=== PATIENT | female | born 1965 | race Caucasian/White ===

== ENCOUNTER 2021-10-09 06:23 | Observation (INO) | payer OTHER ==
[~2021-10-09] VITALS: Ht 160 cm; Wt 83.5 kg
[2021-10-09] VITALS (10 sets, daily range): BP systolic 94–125; BP diastolic 51–69
[~2021-10-09 06:23] MED LIST: AMIODARONE HCL400 MG PO; ASPIR 8181 M1 PO; AUGMENTIN 875-1 EACH PO; CARDIZEM CD240 M1 PO; CARTIA XT120 M1 PO; CEFPODOXIME PR200 M1 PO; CIPROFLOXACIN500 M1 PO; COZAAR 25 MG TA25 M1 PO; COZAAR 25 MG TA25 M2 PO; DILTIAZEM 24HR120 M1 PO; DILTIAZEM 24HR300 M2 PO; EFFIENT10 MG PO; FLAGYL500 MG PO; LANOXIN 0.120.125 M1 PO; LANOXIN125 MCG PO; LEVO-T100 MCG PO; LIPITOR 40 MG T40 M1 PO; MULTAQ 400 MG400 MG PO; NITROGLYCERIN0.4 MG SUBLING; NOHOMEMEDICATIONS; NORCO 5-325 TA1 EACH PO; PACERONE 200 M200 M1 PO; PACERONE200 MG PO; PREDNISONE 10 M10 MG PO; PREDNISONE10 MG PO; PROAIR HFA8.5 GM INH; PROTONIX40 M1 PO; SPIRONOLACTONE25 MG PO; TOPROL XL50 MG PO; TORSEMIDE10 MG PO; VICODIN 5-5001 EACH PO; XARELTO20 MG PO
[2021-10-09] MEDS ORDERED: MULTAQ 400 MG400 MG PO (07:41)
[2021-10-09 07:54] LABS: ABSOLUTE NEUTROPHILS 10.4 thou/uL (1.4-8.2); BASOPHILS 1.1 % (0.0-2.0); EOSINOPHILS 1.9 % (0.0-3.0); HEMATOCRIT 41.5 % (37.0-47.0); HEMOGLOBIN 14.4 gm/dL (12.0-15.0); LYMPHOCYTES 21.8 % (24.0-44.0); MCHC 34.6 g/dL (28.0-37.0); MCV 92.3 fL (80.0-100.0); MONOCYTES 6.4 % (1.0-8.0); PLATELET COUNT 348 thou/uL (150-400); POLYS 68.8 % (36.0-66.0); RDW 16.4 % (10.5-14.5); WBC 15.1 thou/uL (4.0-11.0)
[2021-10-09 07:58] LABS: APTT 29.2 Seconds (24.5-32.8); INR 1.03; PROTIME 11.2 Seconds (10.5-12.1)
[2021-10-09 08:09] LABS: ALBUMIN 3.5 g/dL (3.4-5.0); CALCIUM 8.9 mg/dL (8.5-10.1); CREATININE 1.3 mg/dL (0.6-1.0); POTASSIUM 4.3 mmol/L (3.5-5.1); TOTAL BILIRUBIN 0.6 mg/dL (0.2-1.0); TOTAL PROTEIN 6.7 g/dL (6.4-8.2)
--- NOTE | 2021-10-09 13:24 | NUR ---
Received pt to room 212 from PACU following AFib ablation & cardioversion. Pt is A&O x4, SA on the monitor, on 2L NC. No home oxygen. Admission assessment & forms signed. Rt groin site is C/D/I. Bedrest until approx 1600. VSS. Fall precautions in place.
--- NOTE | 2021-10-10 01:28 | NUR ---
ASSUMED PT CARE AT 1900.PT WAS OBSERVED SITTING UP ON HER BED WATCHING TV AT [facility].PT DENIED PAIN SO FAR.PT UP ADLIB IN HER RROM.R GROIN DRSG C/D/I.NO HEMATOMA NOTED SO FAR.PT ABLE T MAKE HER NEEDS KNOWN.CALL LIGHT WITHIN REACH.
[2021-10-10 05:00] VITALS: BP 108/51
[2021-10-10 07:23] VITALS: BP 115/63
[2021-10-10] MEDS ORDERED: ASPIRIN325 PO (07:35)
[2021-10-10 10:19] VITALS: BP 115/63
--- NOTE | 2021-10-10 10:37 | NUR ---
DISCHARGED PT. EXPALINED DISCHARGE INSTRUCTIONS AND MEDICATIONS. PT STATED SHE UNDERSTOOD AND REPEATED THE INSTRUCTIONS. PT WAS TAKING OUT VIA WHEEL CHAIR. PT DID NOT HAVE ANY COMPLAINTS AT TIME OF DISCHARGE.
--- NOTE | 2021-10-13 16:28 | P ---
[facility] [place] [address] PROCEDURE REPORT Name: JOLIE HALL Room #: 212-P [facility] M.R.#: [id number] Admission: 10/09/21 Attend Phys: Tin Marks MD Discharge: 10/10/21 Date of : 65 Report #: [id number] THIS REPORT FOR: cc: Aaron Traore MD, Jason MD Couchonnal,Tin Driscoll MD ~ DATE OF SERVICE: 10/09/2021 PREOPERATIVE DIAGNOSES: 1. Atrial fibrillation. 2. Cardiomyopathy. 3. Chronic obstructive pulmonary disease. HISTORY: The patient is a 56-year-old with history of recurrent AFib despite multiple cardioversions, who is here for AFib ablation. PROCEDURES PERFORMED: 1. Atrial fibrillation ablation, CPT code 88615 2. 3D mapping, CPT code 80693. 3. Intracardiac echo, CPT code 71552. 4. Focal ablation -- CPT code 20154. DESCRIPTION OF PROCEDURE: The patient was brought to the EP laboratory in a fasting and sedated state, prepped and draped in standard fashion. I obtained access to the right femoral vein x 3, placing an 8, 9 and 7-German short sheath using modified Seldinger technique. Under fluoroscopy, decapolar catheter was placed easily in the coronary sinus, ICE catheter was placed in the right atrium. Using intracardiac ultrasound, I verified that there were 2 left and 2 right pulmonary veins. The patient was systemically heparinized. Transseptal was performed using an SL1 sheath and a Warren needle and this was straightforward. I then exchanged for the Cryosheath and placed the Lasso catheter in the left atrium and created 3D voltage map of the left atrium. I started by isolating the left superior pulmonary vein. This vein underwent a 4-minute freeze and isolated at 190 milliseconds but then reconnected. I performed a 4-minute followed by 3-minute freeze and this resulted in isolation. The left inferior pulmonary vein underwent a 4-minute freeze and subsequently underwent a 5-minute freeze and isolated at 71 seconds. When I went to interrogate this vein at the end of the case, it had reconnected, so I performed an additional 4-minute freeze which resulted in isolation. The right superior pulmonary vein underwent a single 3-minute freeze isolating at 29 milliseconds. The right inferior pulmonary vein underwent a 3-minute followed by 4-minute freeze which did not result in isolation. I then performed a third freeze along the higher aspect of the vein and this resulted in isolation in 60 seconds. This freeze was of 4 minutes' duration. Next, I decided to perform posterior wall isolation. I performed a total of 3 freezes anchored from the left inferior pulmonary vein and I performed 3 freezes anchored from the left [address] [address] PROCEDURE REPORT Name: JOLIE HALL Room #: 212-P [facility] Bella#: [id number] Admission: 10/09/21 Attend Phys: Tin Marks MD Discharge: 10/10/21 Date of : 65 Report #: [id number] superior pulmonary vein and then a repeat voltage map was created. This showed that all 4 veins were isolated and that the posterior wall was also now isolated. The patient underwent cardioversion. There were no other arrhythmias noted and the procedure was concluded. Using intracardiac ultrasound, I verified there was no pericardial effusion. The patient received systemic protamine and once the ACT was within acceptable range, all catheters and sheaths were pulled. Hemostasis obtained. CONCLUSIONS: 1. Successful atrial fibrillation ablation with isolation of pulmonary veins. 2. Post-successful posterior wall isolation. <ELECTRONICALLY SIGNED> By: Tin Marks MD 10/13/21 1628 [id number] Tin Marks MD /nt
== END 2021-10-10 10:38 | disposition home or self-care (01) ==
LOC: CATH 06:23 → 2N 07:06 → CATH 08:19 → 2N 10-10 10:38
PROVIDERS: ADMIT Internal Medicine Cardiovascular Disease; ATTEND Internal Medicine Cardiovascular Disease
DX: I48.91 Unspecified atrial fibrillation (principal); I42.9 Cardiomyopathy, unspecified; J44.9 Chronic obstructive pulmonary disease, unspecified; I25.10 Atherosclerotic heart disease of native coronary artery without angina pectoris; E78.5 Hyperlipidemia, unspecified; I25.5 Ischemic cardiomyopathy; Z20.822 Contact with and (suspected) exposure to COVID-19; F17.210 Nicotine dependence, cigarettes, uncomplicated; Z79.899 Other long term (current) drug therapy; Z79.01 Long term (current) use of anticoagulants
CPT/HCPCS: 62110; 62900; 65020; 70005